=== PATIENT | female | born 1935 | race Caucasian/White ===

== ENCOUNTER 2018-11-08 08:25 | Emergency (ER) | payer OTHER ==
[2018-11-08 08:36] VITALS: BP 165/97; TEMP 98.5; BMI 24.0
--- NOTE | 2018-11-08 09:22 | CT ---
EXAM: CT of the abdomen and pelvis without contrast: History: Patient with history of right flank pain. COMPARISON: None available at the time of dictation Technique: Non contrast CT of the abdomen and pelvis was performed with axial , sagital and coronal r econstuctions were obtained and reviewed. FINDINGS: Prominent stool throughout the colon suggest constipation. Atherosclerotic arterial vascular calcifi cations present. There is colonic diverticulosis present. There is a large hiatal hernia present. There is a right adrenal nodule measuring 3.1 cm in diameter at axial image number 31 which is negati ve 1 HU in density. There is a left adrenal nodule present measuring 2.5 x 1.3 cm in diameter at axi al image number 26 which is negative 3 HU in density. No stones are identified in the bilateral kidneys, ureters or bladder. There is no hydronephrosis or hydroureter idenified. There is overall technical limitation due to metallic streak artifact from u nderlying stimulator device and hardware. Within the limits of this noncontrast study, no lesions are identified in the kidneys, liver, spleen or pancreas. The gallbladder is present. No dilated bowel loops are identified. No focal fluid c ollections or pathologically enlarged lymph nodes are identified in the abdomen or pelvis. Bone windows demonstrate no destructive osseous lesions are identified in the abdomen or pelvis. Deg enerative changes are seen at the lower thoracic and lumbar spine. Hardware seen at the lower lumbos acral spine. There is partially visualized probable dorsal column stimulator device seen. There is lumbar levoscoliosis present. Limited evaluation of the lung bases appear clear. IMPRESSION: 1. No definite calcified stones are identified at the bilateral kidneys ureters or bladder. 2. Stool throughout the colon suggests constipation. 3. Large hiatal hernia. 4. Bilateral adrenal nodules. 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 5. Atherosclerotic arterial vascular calcification/disease. 6. Technical limitations due to metallic streak artifact and absence of contrast as described.
--- NOTE | 2018-11-08 09:46 | ED.PDOC ---
General ED Provider: Dr. INDIA COOK-ER Chief Complaint: Abdominal Pain Stated Complaint: im hurting Time Seen by Physician: 08:30 Mode of Arrival: Walk-In Information Source: Patient Exam Limitations: No limitations Primary Care Provider: OSCAR MOFFETT Nursing and Triage Documentation Reviewed and Agree: Yes Does patient meet sepsis criteria?: No System Inflammatory Response Syndrome: Not Applicable Sepsis Protocol: For patient's 13 years and over: Temp is 96.8 and below OR 101 and greater Pulse >90 BPM Resp >20/minute Acutely Altered Mental Status Are patient's symptoms suggestive of a new infection, such as: -Pneumonia -Skin, Soft Tissue -Endocarditis -UTI -Bone, Joint Infection -Implantable Device -Acute Abdominal Infection -Wound Infection -Meningitis -Blood Stream Catheter Infection -Unknown Skin Complaint Exam - Skin Rash/Itching Complaint/Exam Onset/Duration: 24 hrs Symptoms Are: Still present Initial Severity: Mild Current Severity: Mild Location: right upper abd Potential Exposures: Reports: Other Aggravating: Reports: None Alleviating: Reports: None Associated Signs and Symptoms: Denies: Difficulty breathing, Fever, Chills Skin Findings: Present: Vesicles Differential Diagnoses: Varicella Zoster Review of Systems - Review Of Systems Constitutional: Reports: No symptoms Eyes: Reports: No symptoms Ears, Nose, Mouth, Throat: Reports: No symptoms Respiratory: Reports: No symptoms Cardiac: Reports: No symptoms GI: Reports: Abdominal pain : Reports: No symptoms Musculoskeletal: Reports: No symptoms Skin: Reports: No symptoms Neurological: Reports: No symptoms Endocrine: Reports: No symptoms Hematologic/Lymphatic: Reports: No symptoms All Other Systems: Reviewed and Negative Past Medical History - Past Medical History Previously Healthy: Yes Endocrine: Reports: Unknown Cardiovascular: Reports: Unknown Respiratory: Reports: Unknown Hematological: Reports: Unknown Gastrointestinal: Reports: Unknown Genitourinary: Reports: Unknown Neuro/Psych: Reports: Unknown Musculoskeletal: Reports: Unknown Cancer: Reports: Unknown Last Menstrual Period: none - Surgical History General Surgical History: Reports: Unknown - Family History Family History: Reports: Unknown - Social History Smoking Status: Current some day smoker - Immunizations Tetanus Shot up to Date: No Physical Exam - Physical Exam Appearance: Well-appearing, No pain distress, Well-nourished Pain Distress: Mild Eyes: EVA, EOMI, Conjunctiva clear ENT: Ears normal, Nose normal, Oropharynx normal Neck: Supple Respiratory: Airway patent, Breath sounds clear, Breath sounds equal, Respirations nonlabored Cardiovascular: RRR, Pulses normal, No rub, No murmur GI/: Soft, Nontender, No masses, Bowel sounds normal, No Organomegaly Musculoskeletal: Normal strength, ROM intact, No edema, No calf tenderness Skin: Warm, Dry, Normal color Neurological: Sensation intact, Motor intact, Reflexes intact, Cranial nerves intact, Alert, Oriented Psychiatric: Affect appropriate, Mood appropriate Critical Care Note - Critical Care Note Total Time (mins): 0 Course - Course Hematology/Chemistry: 11/08/18 08:49 11/08/18 08:49 Orders, Labs, Meds: Lab Review 11/08/18 11/08/18 11/08/18 08:49 08:49 08:50 WBC 5.00 RBC 4.10 L Hgb 13.1 Hct 39.1 MCV 95.4 MCH 32.0 H MCHC 33.5 RDW Coeff of Anayeli 13.2 Plt Count 255 Immature Gran % (Auto) 0.2 Neut % (Auto) 72.6 Lymph % (Auto) 15.4 [place] % (Auto) 9.4 Eos % (Auto) 2.0 Baso % (Auto) 0.4 Immature Gran # (Auto) 0.0 Neut # (Auto) 3.6 Lymph # (Auto) 0.8 [place] # (Auto) 0.5 Eos # (Auto) 0.1 Baso # (Auto) 0.0 Sodium 137.1 Potassium 3.86 Chloride 103.2 Carbon Dioxide 31.0 H Anion Gap 6.76 BUN 15.2 Creatinine 0.61 Estimated GFR (MDRD) 94.00 BUN/Creatinine Ratio 24.91 Glucose 104.9 Calcium 9.57 Total Bilirubin 0.62 AST 34.8 ALT 20.7 Alkaline Phosphatase 57.3 Total Creatine Kinase 90.3 Troponin I < 0.012 Total Protein 7.23 Albumin 4.43 Globulin 2.80 Albumin/Globulin Ratio 1.58 Amylase 72.9 Lipase 119.3 Urine Color Yellow Urine Clarity Clear Urine pH 7.5 Ur Specific [place] 1.020 Urine Protein Negative Urine Glucose (UA) Negative Urine Ketones Negative Urine Blood Trace-intact Urine Nitrite Negative Urine Bilirubin Negative Urine Urobilinogen 0.2 Ur Leukocyte Esterase Trace Urine Microscopic RBC 2-5 Urine Microscopic WBC 0-2 Ur Squamous Epith Cells 10-20 Urine Bacteria Trace Orders Category Date Time Status EKG-(ED ONLY) Stat CARDIO 08/25/19 08:47 Completed ED VEHICLE CARE SPECIALIST APPLIED .ONCE EMERGENCY 11/08/18 08:47 Active ED IV/MEDIPORT/POWERPORT .ONCE EMERGENCY 11/08/18 08:47 Active AMYLASE Stat LAB 11/08/18 08:49 Completed CBC W/ AUTO DIFF Stat LAB 11/08/18 08:49 Completed COMPREHENSIVE METABOLIC PANEL Stat LAB 11/08/18 08:49 Completed CREATINE KINASE Stat LAB 11/08/18 08:49 Completed LIPASE Stat LAB 11/08/18 08:49 Completed TROPONIN I Stat LAB 11/08/18 08:49 Completed UA [URINALYSIS C & S IF INDICATED] Stat LAB 11/08/18 08:[address] ABD/PEL WO RENAL STONE PROT Stat RADS 11/08/18 08:[address] CHEST W/O CONTRAST Stat RADS 11/08/18 08:52 Completed Vital Signs: Temp Pulse Resp BP Pulse Ox 11/08/18 08:25 98.5 F 82 20 165/97 H 97 Departure - Departure Time of Disposition: 09:46 Disposition: HOME SELF-CARE Discharge Problem: Lung nodule Herpes zoster Qualifiers: Herpes zoster complications: without complications Qualified Code(s): B02.9 - Zoster without complications Instructions: Shingles (ED) Condition: Good Pt referred to PMD for follow-up: Yes IPMP verified?: No Additional Instructions: f/u with your pcp--you need to discuss lung nodule Prescriptions: Acyclovir [Zovirax] 800 mg PO Q4HR #35 capsule Oxycodone HCl/Acetaminophen [Percocet 7.5-325 mg Tablet] 1 tab PO Q6HR PRN #14 tablet PRN Reason: PAIN Allergies/Adverse Reactions: Allergies No Known Allergies Allergy (Unverified 11/08/18 08:42) Home Medications: Ambulatory Orders Acyclovir [Zovirax] 800 mg PO Q4HR #35 capsule 11/08/18 Calcium Carbonate [Calcium] 1,200 mg PO DAILY 11/08/18 Folic Acid 1 mg PO DAILY 11/08/18 Hydroxychloroquine Sulfate [Plaquenil] 200 mg PO BID 11/08/18 Levothyroxine Sodium 88 mg PO DAILY 11/08/18 Lisinopril/Hydrochlorothiazide [Lisinopril-Hctz 10-12.5 mg Tab] 1 tab PO DAILY 11/08/18 Methotrexate Sodium [Methotrexate] 50 mg PO WEEKLY 11/08/18 Oxycodone HCl/Acetaminophen [Percocet 7.5-325 mg Tablet] 1 tab PO Q6HR PRN #14 tablet 11/08/18 Tramadol HCl 50 mg PO BID 11/08/18 Disposition Discussed With: Patient, Family
--- NOTE | 2018-11-08 10:19 | CT ---
EXAM: CT chest without contrast. HISTORY: Right chest wall pain. Comparison: None available at the time of dictation Technique: CT chest was performed without contrast. Axial, coronal and sagittal reconstructions wer e obtained. Findings: Lung window evaluation demonstrates an indeterminate right lung apex 6 mm nodule present at axial daniel ge number 12. There is a streaky patchy airspace opacity seen within the left upper lobe lingula. T here is a left lung lower lobe calcified granuloma present. Thoracic soft tissue evaluation demonstrates no definitive pathologically enlarged axillary or medias tinal lymphadenopathy identified. Hilar lymphadenopathy is not well assessed in the absence of IV co ntrast. Cardiac size is within normal limits. Atherosclerotic arterial vascular calcifications are present including within the coronary artery distribution. Left hilar calcified lymph nodes suggest old granulomatous disease. There is a large hiatal hernia present. The upper abdomen is assessed on CT abdomen from 11/08/2018. Bone window evaluation demonstrates thoracic spine degenerative changes. Impression: 1. 6 mm right lung apex nodule. Recommend CT chest followup in 6 months to assess stability. 2. Streaky patchy minimal atelectasis versus infiltrate seen within the left upper lobe lingula
== END 2018-11-08 10:32 | disposition home or self-care (01) ==
LOC: ED 08:25
DX: R91.1 Solitary pulmonary nodule (principal); B02.9 Zoster without complications; R10.9 Unspecified abdominal pain; F17.210 Nicotine dependence, cigarettes, uncomplicated; Z79.899 Other long term (current) drug therapy
CPT/HCPCS: 36415; 80053; 81001; 82150; 82550; 83690; 84484; 85025; 93005; 93010; 99283